=== PATIENT | female | born 1990 | race Caucasian/White ===

== ENCOUNTER → 2020-10-14 | Outpatient (CLI) | payer BC ==
[2020-10-15 01:50] LABS: Soybean IgE <0.10 kU/L; Walnut IgE (Food) <0.10 kU/L
[2020-10-15 01:51] LABS: Peanut IgE <0.10 kU/L; Shrimp IgE <0.10 kU/L
[2020-10-15 01:52] LABS: Egg White IgE <0.10 kU/L
[2020-10-15 10:14] LABS: Lettuce IgE Class CLASS 0
[2020-10-15 10:15] LABS: Crab IgE <0.10 kU/L (<0.10); Crab IgE Class CLASS 0
[2020-10-15 10:16] LABS: Pork IgE Class CLASS 0
[2020-10-15 10:17] LABS: Beef IgE <0.10 kU/L (<0.10); Beef IgE Class CLASS 0
[2020-10-15 10:18] LABS: Apple IgE Class CLASS 0; Oat IgE Class CLASS 0; Onion IgE <0.10 kU/L (<0.10); Onion IgE Class CLASS 0; Salmon IgE <0.10 kU/L (<0.10); Salmon IgE Class CLASS 0; Yeast Bakers/Brew IgE <0.10 kU/L (<0.10); Yeast Bakers/Brew IgE Class CLASS 0
[2020-10-15 10:19] LABS: Celery IgE <0.10 kU/L (<0.10); Celery IgE Class CLASS 0; Chicken IgE Class CLASS 0; Egg Yolk IgE Class CLASS 0; Gluten IgE Class CLASS 0; Lobster IgE <0.10 kU/L (<0.10); Lobster IgE Class CLASS 0
[2020-10-15 10:20] LABS: Avocado Class CLASS 0; Banana IgE Class CLASS 0; Chocolate IgE Class CLASS 0; Coffee IgE <0.10 kU/L (<0.10); Coffee IgE Class CLASS 0; Cow's Milk IgE Class CLASS 0; Egg White IgE <0.10 kU/L (<0.10); Hazelnut IgE <0.10 kU/L (<0.10); Hazelnut IgE Class CLASS 0; Kiwi IgE <0.10 kU/L (<0.10); Kiwi IgE Class CLASS 0; Latex IgE Class CLASS 0; Peanut IgE <0.10 kU/L (<0.10); Potato IgE <0.10 kU/L (<0.10); Potato IgE Class CLASS 0; Soybean IgE <0.10 kU/L (<0.10); Tea IgE <0.10 kU/L (<0.10); Tea IgE Class CLASS 0
== END | disposition home or self-care (01) ==
LOC: LABWHC1 12:17
PROVIDERS: ATTEND Otolaryngology
DX: J30.89 Other allergic rhinitis (principal); L50.0 Allergic urticaria; B44.89 Other forms of aspergillosis
CPT/HCPCS: 36415; 86003

== ENCOUNTER → 2020-11-12 | Outpatient (CLI) | payer BC ==
[2020-11-13 11:36] LABS: Alt. alternata IgE Class CLASS 0; Alternaria alternata IgE <0.10 kU/L (<0.10); Asperg. fumagatus IgE <0.10 kU/L (<0.10); Asperg. fumagatus IgE Class CLASS 0; Aureo. pullulans IgE <0.10 kU/L (<0.10); Aureo. pullulans IgE Class CLASS 0; Birch(Com.Silvr) IgE <0.10 kU/L (<0.10); Birch(Com.Silvr) IgE Class CLASS 0; Candida albicans IgE Class CLASS 0; Cat Epith & Dander IgE <0.10 kU/L (<0.10); Cat Epith & Dander IgE Class CLASS 0; Clad herbarum IgE <0.10 kU/L (<0.10); Clad herbarum IgE Class CLASS 0; Cockroach IgE <0.10 kU/L (<0.10); Com. Pigweed IgE <0.10 kU/L (<0.10); Com. Pigweed IgE Class CLASS 0; Cottonwood IgE <0.10 kU/L (<0.10); Dermato. Pteronyssinus Class CLASS 0; Dermato. Pteronyssinus IgE <0.10 kU/L (<0.10); Dermato. farinae IgE <0.10 kU/L (<0.10); Dermato. farinae IgE Class CLASS 0; Dog Dander IgE <0.10 kU/L (<0.10); English Plantain IgE Class CLASS 0; Epicoccum purpurascens Class CLASS 0; Epicoccum purpurascens IgE <0.10 kU/L (<0.10); Johnson Grass IgE Class CLASS 0/1; Lamb's Quarter IgE <0.10 kU/L (<0.10); Lamb's Quarter IgE Class CLASS 0; Maple (Box Elder) IgE <0.10 kU/L (<0.10); Maple (Box Elder) IgE Class CLASS 0; Mucor racemosus IgE <0.10 kU/L (<0.10); Mucor racemosus IgE Class CLASS 0; Oak IgE <0.10 kU/L (<0.10); Rhizopus nigricans IgE <0.10 kU/L (<0.10); Rhizopus nigricans IgE Class CLASS 0; S.rostrata/Helminth Class CLASS 0; S.rostrata/Helminth IgE <0.10 kU/L (<0.10); Sycamore(Mpl.Lf) IgE <0.10 kU/L (<0.10); Sycamore(Mpl.Lf) IgE Class CLASS 0; Timothy Grass IgE 0.49 kU/L (<0.10); Timothy Grass IgE Class CLASS 1; Walnut Tree IgE <0.10 kU/L (<0.10); Walnut Tree IgE Class CLASS 0; White Ash IgE Class CLASS 0
== END | disposition home or self-care (01) ==
LOC: LABWHC1 14:09
PROVIDERS: ATTEND Otolaryngology
DX: J30.89 Other allergic rhinitis (principal)
CPT/HCPCS: 36415; 86003

== ENCOUNTER 2023-12-19 18:14 | Emergency (ER) | payer BC ==
--- NOTE | 2023-12-19 18:46 | ED ---
Female Urogenital HPI - General Stated complaint: 8wk preg/bleeding Time Seen by Provider: 12/19/23 18:44 - History of Present Illness Initial comments: 33-year-old female G2, presenting to the ED with complaints of lower abdominal pain and vaginal bleeding. Follows with Dr. Len Bacon of [facility]. Denies urinary symptoms. Otherwise denies vaginal discharge. No concern for STDs. No chest pain or shortness of breath. No fev er or chills. No other complaints at this time. - Related Data Home Medications Medication Instructions Recorded Confirmed Albuterol Sulfate [Proair Hfa] 1 - 2 puff INHALATION Q6HR PRN 07/26/17 07/26/17 Cetirizine HCl [Zyrtec] 10 mg PO DAILY 07/26/17 07/26/17 Cholecalciferol (Vitamin D3) 2,000 unit PO DAILY 07/26/17 07/26/17 [Vitamin D3] Citalopram Hydrobromide [CeleXA] 20 mg PO DAILY 07/26/17 07/26/17 Levonorgestrel [Mirena] 1 each IY DIRECTED 07/26/17 07/26/17 Multivit with Calcium,Iron,Min 2 each PO DAILY 07/26/17 07/26/17 [Women's Multivitamin] Omeprazole (Unknown Dose) Otc 1 tab PO DAILY PRN 07/26/17 07/26/17 Previous Rx's Medication Instructions Recorded Azithromycin [Zithromax] 500 mg PO DAILY #5 tab 07/28/17 Hydrocodone/Acetaminophen [[place] 1 - 2 each PO Q6HR PRN #50 tab 07/28/17 5-325] Lidocaine Viscous [Xylocaine 5 ml PO RT-Q1H PRN #300 ml 07/28/17 Viscous 2%] Omeprazole 20 mg PO BID 15 Days #30 tablet. 07/28/17 predniSONE [Deltasone] 20 mg PO DIRECTED #15 tab 07/28/17 Cephalexin [Keflex] 500 mg PO Q6HR 7 Days #28 cap 12/19/23 Allergies Allergy/AdvReac Type Severity Reaction Status Date / Time Penicillins Allergy Unknown Unknown Verified 12/19/23 18:52 Childhood Sulfa (Sulfonamide Allergy Unknown Rash/Hives Verified 12/19/23 18:52 Antibiotics) Review of Systems ROS Statement: Those systems with pertinent positive or pertinent negative responses have been documented in the HPI. ROS Other: All systems not noted in ROS Statement are negative. Past Medical History Past Medical History: Asthma, GERD/Reflux Additional Past Medical History / Comment(s): SEASONAL ALLERGIES, EXERCISE INDUCED ASTHMA, OCCASIONAL GERD., ENLARGED TONSILLS. History of Any Multi-Drug Resistant Organisms: None Reported Additional Past Surgical History / Comment(s): wisdom teeth extraction Past Anesthesia/Blood Transfusion Reactions: Family History of Problems w/ Anesthesia Additional Past Anesthesia/Blood Transfusion Reaction / Comment(s): ONLY SEDATION SHE HAS HAD WAS WITH EXTRACTION OF WISDOM TEETH AND SHE HAD NAUSEA AND VOMITING. MOTHER= PONV Past Psychological History: Anxiety Past Alcohol Use History: Occasional Past Drug Use History: None Reported - Past Family History Mother Family Medical History: Diabetes Mellitus General Exam - General Exam Comments Initial Comments: Visual Physical Exam Vital signs reviewed General: Well-appearing, nontoxic, Head: Normocephalic, atraumatic Eyes: PERRLA, EOMI ENT: Airway patent Chest: Nonlabored breathing Skin: No visual rash, normal skin tone Neuro: Alert and oriented 3 Musculoskeletal: No gross abnormalities General appearance: alert, in no apparent distress Eye exam: Present: normal appearance Neck exam: Present: normal inspection Respiratory exam: Present: normal lung sounds bilaterally Cardiovascular Exam: Present: regular rate GI/Abdominal exam: Present: soft. Absent: distended, tenderness, guarding, rebound, rigid Neurological exam: Present: alert, oriented X3 Skin exam: Present: warm, dry Course Vital Signs 12/19/23 18:47 Temperature 97.9 F Pulse Rate 92 Respiratory 18 Rate Blood Pressure 130/84 O2 Sat by Pulse 100 Oximetry Medical Decision Making - Medical Decision Making Quicknote portion performed. Signed Myron Silva PA-C Was pt. sent in by a medical professional or institution ([facility], [facility], urgent care, hospital, or [facility]...) When possible be specific @ -No Did you speak to anyone other than the patient for history (EMS, parent, family, police, friend...)? What history was obtained from this source @ -No Did you review nursing and triage notes (agree or disagree)? Why? @ -I reviewed and agree with nursing and triage notes Were old charts reviewed (outside hosp., previous admission, EMS record, old EKG, old radiological studies, urgent care reports/EKG's, [facility] records)? Report findings @ -No old charts were reviewed Differential Diagnosis (chest pain, altered mental status, abdominal pain women, abdominal pain men, vaginal bleeding, weakness, fever, dyspnea, syncope, headache, dizziness, GI bleed, back pain, seizure, CVA, palpatations, mental he alth, musculoskeletal)? @ -Differential Vaginal Bleeding: Spontaneous , threatened , molar , ectopic , bloody show, incompetent cervix, abruptioplacenta, placenta previa, uterine rupture, dysfunctional uterine bleeding, hemorrhage, uterine fibroids, this is not meant to be an all-inclusive list. EKG interpreted by me (3pts min.). @ -None X-rays interpreted by me (1pt min.). @ -None done CT interpreted by me (1pt min.). @ -None done U/S interpreted by me (1pt. min.). @ -Ultrasound interpreted me showing single live IUP at 8 weeks and 3 days at a rate of 184 bpm. Subchorionic hemorrhage is also visible as well. What testing was considered but not performed or refused? (CT, X-rays, U/S, labs)? Why? @ -None What meds were considered but not given or refused? Why? @ -None Did you discuss the management of the patient with other professionals (professionals i.e. , PA, [facility], lab, RT, psych nurse, social sciences professor, metallurgical laboratory assistant, teacher, community cultural development officer, case manager specialist)? Give summary @ -No Was smoking cessation discussed for >3mins.? @ -No Was critical care preformed (if so, how long)? @ -No Were there social determinants of health that impacted care today? How? (Homelessness, low income, unemployed, alcoholism, drug addiction, transportation, low edu. Level, literacy, decrease access to med. care, assisted, rehab)? @ -No Was there de-escalation of care discussed even if they declined (Discuss DNR or withdrawal of care, Hospice)? DNR status @ -No What co-morbidities impacted this encounter? (DM, HTN, Smoking, COPD, CAD, Cancer, CVA, ARF, Chemo, Hep., AIDS, mental health diagnosis, sleep apnea, morbid obesity)? @ - Was patient admitted / discharged? Hospital course, mention meds given and route, prescriptions, significant lab abnormalities, going to OR and other pertinent info. @ -Discharge 33-year-old G2, female presents to the ED with complaints of lower abdominal cramping and episode of vaginal bleeding which at this time has resolved. Laboratory studies reviewed. CBC does show elevation white blood cell count 15.9, elevated neutrophils 12.4. Chemistry panel unremarkable. hCG quant 73,990.8. UA does show blood and RBCs with 17 white blood cells and rare bacteria. Ultrasound revealed single live IUP with small subchorionic hemorrhage. Discharged home with prescription for Keflex and advised close follow-up with her FILM PROJECTOR OPERATOR. Discussed return precautions with patient who verbalized agreement. Undiagnosed new problem with uncertain prognosis? @ -No Drug Therapy requiring intensive monitoring for toxicity (Heparin, Nitro, Insulin, Cardizem)? @ -No Were any procedures done? @ -No Diagnosis/symptom? @ -Vaginal bleeding in Acute, or Chronic, or Acute on Chronic? @ -Acute Uncomplicated (without systemic symptoms) or Complicated (systemic symptoms)? @ -Uncomplicated Side effects of treatment? @ -No Exacerbation, Progression, or Severe Exacerbation? @ -No Poses a threat to life or bodily function? How? (Chest pain, USA, SC, pneumonia, PE, COPD, DKA, ARF, appy, cholecystitis, CVA, Diverticulitis, Homicidal, Suicidal, threat to staff... and all critical care pts) @ -No - Lab Data Result diagrams: 12/19/23 19:17 12/19/23 19:17 Lab Results 12/19/23 12/19/23 12/19/23 Range/Units 19:17 19:17 21:35 WBC 15.9 H (3.8-10.6) k/uL RBC 4.60 (3.80-5.40) m/uL Hgb 13.3 (11.4-16.0) gm/dL Hct 39.6 (34.0-46.0) % MCV 86.1 (80.0-100.0) fL MCH 29.0 (25.0-35.0) pg MCHC 33.6 (31.0-37.0) g/dL RDW 12.5 (11.5-15.5) % Plt Count 307 (150-450) k/uL MPV 8.6 Neutrophils % 78 % Lymphocytes % 15 % Monocytes % 4 % Eosinophils % 1 % Basophils % 0 % Neutrophils # 12.4 H (1.3-7.7) k/uL Lymphocytes # 2.4 (1.0-4.8) k/uL Monocytes # 0.7 (0-1.0) k/uL Eosinophils # 0.1 (0-0.7) k/uL Basophils # 0.1 (0-0.2) k/uL Sodium 137 (137-145) mmol/L Potassium 3.8 (3.5-5.1) mmol/L Chloride 107 (98-107) mmol/L Carbon Dioxide 20 L (22-30) mmol/L Anion Gap 10 mmol/L BUN 5 L (7-17) mg/dL Creatinine 0.56 (0.52-1.04) mg/dL Est GFR (CKD-EPI)AfAm >90 (>60 ml/min/1.73 sqM) Est GFR (CKD-EPI)NonAf >90 (>60 ml/min/1.73 sqM) Glucose 93 (74-99) mg/dL Calcium 9.0 (8.4-10.2) mg/dL Total Bilirubin 0.5 (0.2-1.3) mg/dL AST 22 (14-36) U/L ALT 38 H (4-34) U/L Alkaline Phosphatase 111 (38-126) U/L Total Protein 7.1 (6.3-8.2) g/dL Albumin 4.1 (3.5-5.0) g/dL HCG, Quant 12343.8 mIU/mL Urine Color Yellow Urine Appearance Clear (Clear) Urine pH 5.5 (5.0-8.0) Ur Specific [place] 1.013 (1.001-1.035) Urine Protein Trace H (Negative) Urine Glucose (UA) Negative (Negative) Urine Ketones 2+ H (Negative) Urine Blood Moderate H (Negative) Urine Nitrite Negative (Negative) Urine Bilirubin Negative (Negative) Urine Urobilinogen <2.0 (<2.0) mg/dL Ur Leukocyte Esterase Moderate H (Negative) Urine RBC 93 H (0-5) /hpf Urine WBC 17 H (0-5) /hpf Ur Squamous Epith Cells 1 (0-4) /hpf Urine Bacteria Rare H (None) /hpf Urine Mucus Few H (None) /hpf Blood Type Recheck Bld Type Recheck Status Spec Expiration Date 12/19/23 Range/Units 22:05 WBC (3.8-10.6) k/uL RBC (3.80-5.40) m/uL Hgb (11.4-16.0) gm/dL Hct (34.0-46.0) % MCV (80.0-100.0) fL MCH (25.0-35.0) pg MCHC (31.0-37.0) g/dL RDW (11.5-15.5) % Plt Count (150-450) k/uL MPV Neutrophils % % Lymphocytes % % Monocytes % % Eosinophils % % Basophils % % Neutrophils # (1.3-7.7) k/uL Lymphocytes # (1.0-4.8) k/uL Monocytes # (0-1.0) k/uL Eosinophils # (0-0.7) k/uL Basophils # (0-0.2) k/uL Sodium (137-145) mmol/L Potassium (3.5-5.1) mmol/L Chloride (98-107) mmol/L Carbon Dioxide (22-30) mmol/L Anion Gap mmol/L BUN (7-17) mg/dL Creatinine (0.52-1.04) mg/dL Est GFR (CKD-EPI)AfAm (>60 ml/min/1.73 sqM) Est GFR (CKD-EPI)NonAf (>60 ml/min/1.73 sqM) Glucose (74-99) mg/dL Calcium (8.4-10.2) mg/dL Total Bilirubin (0.2-1.3) mg/dL AST (14-36) U/L ALT (4-34) U/L Alkaline Phosphatase (38-126) U/L Total Protein (6.3-8.2) g/dL Albumin (3.5-5.0) g/dL HCG, Quant mIU/mL Urine Color Urine Appearance (Clear) Urine pH (5.0-8.0) Ur Specific [place] (1.001-1.035) Urine Protein (Negative) Urine Glucose (UA) (Negative) Urine Ketones (Negative) Urine Blood (Negative) Urine Nitrite (Negative) Urine Bilirubin (Negative) Urine Urobilinogen (<2.0) mg/dL Ur Leukocyte Esterase (Negative) Urine RBC (0-5) /hpf Urine WBC (0-5) /hpf Ur Squamous Epith Cells (0-4) /hpf Urine Bacteria (None) /hpf Urine Mucus (None) /hpf Blood Type Recheck No Previous Record Bld Type Recheck Status CABO Indicated Spec Expiration Date 12/22/20232304 Disposition Clinical Impression: Vaginal bleeding during Disposition: HOME SELF-CARE Condition: Good Instructions (If sedation given, give patient instructions): Pelvic Rest (ED) Additional Instructions: Please return to the Emergency Department if symptoms worsen or any other concerns. Please follow-up with your FILM PROJECTOR OPERATOR. Prescriptions: Cephalexin [Keflex] 500 mg PO Q6HR 7 Days #28 cap Is patient prescribed a controlled substance at d/c from ED?: No Referrals: Geri Berrios NPC [Primary Care Provider] - 1-2 days Time of Disposition: 22:41
[2023-12-19 19:13] VITALS: RESP 18
[2023-12-19 19:38] LABS: ALT 38 U/L (4-34); AST 22 U/L (14-36); African American GFR (CKD) >90 (>60 ml/min/1.73 sqM); Albumin 4.1 g/dL (3.5-5.0); Alkaline Phosphatase 111 U/L (38-126); Anion Gap 10 mmol/L; Basophils # (A) 0.1 k/uL (0-0.2); Basophils % (A) 0 %; Blood Urea Nitrogen 5 mg/dL (7-17); Carbon Dioxide 20 mmol/L (22-30); Chloride 107 mmol/L (98-107); Eosinophils # (A) 0.1 k/uL (0-0.7); Eosinophils % (A) 1 %; Glucose 93 mg/dL (74-99); HCT 39.6 % (34.0-46.0); HGB 13.3 gm/dL (11.4-16.0); Lymphocytes # (A) 2.4 k/uL (1.0-4.8); Lymphocytes % (A) 15 %; MCHC 33.6 g/dL (31.0-37.0); MCV 86.1 fL (80.0-100.0); Mean Platelet Volume 8.6; Monocytes # (A) 0.7 k/uL (0-1.0); Monocytes % (A) 4 %; Neutrophils # (A) 12.4 k/uL (1.3-7.7); Neutrophils % (A) 78 %; Non-African American GFR(CKD) >90 (>60 ml/min/1.73 sqM); Platelet Count 307 k/uL (150-450); Potassium 3.8 mmol/L (3.5-5.1); RDW 12.5 % (11.5-15.5); Sodium 137 mmol/L (137-145); Total Bilirubin 0.5 mg/dL (0.2-1.3); Total Protein 7.1 g/dL (6.3-8.2); WBC 15.9 k/uL (3.8-10.6)
--- NOTE | 2023-12-19 19:54 | US ---
EXAMINATION TYPE: Transabdominal DATE OF EXAM: 12/19/2023 7:41 PM COMPARISON: NONE CLINICAL INDICATION: Female, 33 years old with history of 8 wks . abdominal pain vag bleeding ; Bleeding today. . Hx of 1 EXAM PERFORMED: Transabdominal (TA) EXAM MEASUREMENTS: GESTATIONAL AGE / DATING Physician Established: Not yet established Dates by LMP: (8 weeks/3 days) EDC: 07/27/24 Dates by First Scan: No previous this is first scan Dates by Current Scan for: (8 weeks/3 days) EDC: 07/27/24 MATERNAL ANATOMY Uterus: 9.1 x 6.6 x 5.4cm Right Ovary: 2.9 x 2.1 x 1.7cm Left Ovary: 3.2 x 2.5 x 2.0cm Post CDS / Adnexa: wnl Presence of free fluid: No Presence of corpus luteal cyst: Yes in lt ov measuring 2.5 x 1.7 x 1.6cm Presence of subchorionic bleed: Yes measuring 3.4 x 2.4 x 2.0cm GESTATION / SURVEY CRL: 1.89cm (8 weeks/3 days) MSD: Not measured, appears wnl Yolk Sac (normal less than 6mm): 3.2mm Heart Rate: 184 bpm Rhythm: Normal IUP: Viable IUP Date of LMP: 10/21/23 Beta HcG (if available): N/A Single live IUP seen measuring 8 weeks 3 days. Subchorionic hemorrhage seen. IMPRESSION: 1. Single live IUP seen measuring 8 weeks 3 days. 2. Small Subchorionic hemorrhage.
[2023-12-19 20:21] LABS: HCG,Quantitative Serum 73990.8 mIU/mL
[2023-12-19 22:09] LABS: Appearance,Urine Clear (Clear); Bacteria,Urine Rare /hpf; Bilirubin,Urine Negative (Negative); Blood,Urine Moderate (Negative); Color,Urine Yellow; Glucose,Urine (UA) Negative (Negative); Leukocyte Esterase,Urine Moderate (Negative); Mucus,Urine Few /hpf; Nitrite,Urine Negative (Negative); PH, Urine 5.5 (5.0-8.0); Protein,Urine Trace (Negative); RBC,Urine 93 /hpf (0-5); Specific Gravity,Urine 1.013 (1.001-1.035); Squamous Epithelial Cell,Urine 1 /hpf (0-4); Urobilinogen,Urine <2.0 mg/dL (<2.0); WBC,Urine 17 /hpf (0-5)
[2023-12-19 22:10] LABS: Ketones,Urine 2+ (Negative)
[2023-12-19 23:46] VITALS: BP 109/75; PULSE 83; TEMP 97.8
== END 2023-12-19 23:16 | disposition home or self-care (01) ==
LOC: EC 18:14
DX: O46.91 Antepartum hemorrhage, unspecified, first trimester (principal); N93.9 Abnormal uterine and vaginal bleeding, unspecified; Z88.0 Allergy status to penicillin; Z88.2 Allergy status to sulfonamides; Z3A.08 8 weeks gestation of pregnancy
CPT/HCPCS: 36415; 76801; 80053; 81001; 84702; 85025; 86850; 86900; 86901; 87086; 99284